=== PATIENT | male | born 1980 | race Caucasian/White ===

== ENCOUNTER 2017-04-18 18:04 | Emergency (ER) | payer OTHER ==
[2017-04-18] MEDS ORDERED: Dexamethasone TAB* 4 MG PO ONE (18:45)
[2017-04-18] MEDS ORDERED: Ketorolac INJ* 60 MG/2 ML VIAL IM ONE (18:45)
[2017-04-18] MEDS ORDERED: Diazepam TAB(*) 5 MG PO ONE (18:45)
[2017-04-18] MEDS ORDERED: oxyCODONE/Acetamin 5/325 MG* TAB PO ONE (18:45)
--- NOTE | 2017-04-18 19:02 | ED ---
Back Pain - HPI Summary HPI Summary: 36M presents with back pain for 2 weeks. He states he has been traveling a lot recently for his job in the [employer]. He states that his back pain is across his back. He states that it radiates down both legs to midthigh area. He denies any loss of bowel or bladder or saddle anaesthesia. He admits to tingling from back to midthigh area. He denies any injury. He has history of right hip pain in the past that things could have been referred pain from his back. He has been taking 800mg ibuprofen once a day and using heat on the area. He has follow up with his primary on Thursday. He denies any fever, - History of Current Complaint Chief Complaint: EDBackInjuryClaudein Stated Complaint: LOWER LEFT BACK PAIN Time Seen by Provider: 04/18/17 18:26 Pain Intensity: 10 - Allergies/Home Medications Allergies/Adverse Reactions: Allergies Allergy/AdvReac Type Severity Reaction Status Date / Time No Known Allergies Allergy Verified 04/18/17 18:18 PMH/Surg Hx/FS Hx/Imm Hx Endocrine/Hematology History: Denies: Hx Anticoagulant Therapy Cardiovascular History: Denies: Hx Myocardial Infarction Infectious Disease History: No Infectious Disease History: Denies: Traveled Outside the [place] in Last 30 Days - Family History Known Family History: Positive: Cardiac Disease - Social History Alcohol Use: Rare Substance Use Type: Reports: None Smoking Status (MU): Heavy Every Day Tobacco Smoker Review of Systems Negative: Fever Negative: Chest Pain Negative: Shortness Of Breath Positive: Myalgia - back pain All Other Systems Reviewed And Are Negative: Yes Physical Exam Triage Information Reviewed: Yes Vital Signs On Initial Exam: Initial Vitals Temp Pulse Resp BP Pulse Ox 99.1 F 84 18 136/89 97 04/18/17 18:15 04/18/17 18:15 04/18/17 18:15 04/18/17 18:15 04/18/17 18:15 Vital Signs Reviewed: Yes Appearance: Positive: Pain Distress Skin: Positive: Warm, Dry Head/Face: Positive: Normal Head/Face Inspection Eyes: Positive: EOMI, Conjunctiva Clear Respiratory/Lung Sounds: Positive: Clear to Auscultation, Breath Sounds Present Cardiovascular: Positive: Normal, RRR Musculoskeletal: Positive: Limited @ - back due to pain, Other - pos SLR left, good pulses, tender greatest on left side of back - [place] Coma Scale Coma Scale Total: 15 Diagnostics - Vital Signs Vital Signs Temp Pulse Resp BP Pulse Ox 04/18/17 18:22 99.1 F 84 16 136/89 97 04/18/17 18:15 99.1 F 84 18 136/89 97 - Laboratory Lab Statement: Any lab studies that have been ordered have been reviewed, and results considered in the medical decision making process. - Radiology back Xray Interpretation: No Acute Changes - IMPRESSION: MILD SCOLIOSIS, OTHERWISE UNREMARKABLE STUDY. Radiology Interpretation Completed By: Radiologist Back Pain Course/Dx - Course Course Of Treatment: 36M presents with back pain for 2 weeks. He states he has been traveling a lot recently for his job in the [employer]. He states that his back pain is across his back. He states that it radiates down both legs to midthigh area. He denies any loss of bowel or bladder or saddle anaesthesia. He admits to tingling from back to midthigh area. He denies any injury. He has history of right hip pain in the past that things could have been referred pain from his back. He has been taking 800mg ibuprofen once a day and using heat on the area. back sizer across back and pos SLR. xray normal. gave muscle relaxer and steriod and patient feeling better. patient understands and agrees with plan - Diagnoses Differential Diagnosis/HQI/PQRI: Positive: Herniated Disc, Strain, Sprain Provider Diagnoses: Back pain Discharge - Discharge Plan Condition: Good Disposition: HOME Prescriptions: Cyclobenzaprine TAB* [Flexeril 10 MG TAB*] 10 mg PO TID PRN #15 tab PRN Reason: Pain Methylprednisolone [Medrol Dosepak 4 MG*] 4 mg PO .SEE [employer] INSTRUCTION #1 packet Patient Education Materials: Back Pain (ED) Referrals: Mildred Alarcon MD [Primary Care Provider] - Additional Instructions: Follow directions on package for Medrol pack Take muscle relaxers three times a day for 3 days Use ibuprofen for pain every 8 hours ice/heat area, move as much as possible Follow up with primary within 5 days Return to ED if develop any new or worsening symptoms
--- NOTE | 2017-04-18 19:21 | RAD ---
INDICATION: Low back pain. COMPARISON: There are no prior studies available for comparison. TECHNIQUE: 5 views of the lumbar spine were obtained including lateral, oblique, AP and a coned-down lateral view of the lumbar sacral junction. FINDINGS: There is a mild lumbar scoliosis convex toward the right side. The vertebra are otherwise in normal alignment. No fracture is seen. Disc spaces appear maintained. IMPRESSION: MILD SCOLIOSIS, OTHERWISE UNREMARKABLE STUDY.
[2017-04-18 20:18] VITALS: BP 128/88
== END 2017-04-18 20:20 | disposition home or self-care (01) ==
LOC: ED 18:04
DX: M54.9 Dorsalgia, unspecified (principal); F17.200 Nicotine dependence, unspecified, uncomplicated
CPT/HCPCS: 72110; 96372; 99282; A9270-GY; J1885